=== PATIENT | female | born 1960 | race Caucasian/White ===

== ENCOUNTER → 2016-10-16 | Outpatient (CLI) | payer BC ==
[2016-10-16 09:57] LABS: Basophils # (A) 0.1 k/uL (0-0.2); Basophils % (A) 1 %; CH 31.7; CHCM 34.5; Eosinophils # (A) 0.2 k/uL (0-0.7); Eosinophils % (A) 3 %; HCT 44.1 % (34.0-46.0); HDW 2.54; HGB 14.7 gm/dL (11.4-16.0); Luc # (Auto) 0.13; Luc % (Auto) 2; Lymphocytes # (A) 2.1 k/uL (1.0-4.8); Lymphocytes % (A) 33 %; MCH 30.7 pg (25.0-35.0); MCHC 33.3 g/dL (31.0-37.0); MCV 92.4 fL (80.0-100.0); Mean Platelet Volume 7.4; Monocytes # (A) 0.4 k/uL (0-1.0); Monocytes % (A) 6 %; Neutrophils # (A) 3.5 k/uL (1.3-7.7); Neutrophils % (A) 55 %; RBC 4.77 m/uL (3.80-5.40); RDW 12.7 % (11.5-15.5); WBC 6.3 k/uL (3.8-10.6); WBC (Perox) 6.45
[2016-10-16 10:19] LABS: ALT 22 U/L (9-52); AST 20 U/L (14-36); Alkaline Phosphatase 70 U/L (38-126); Anion Gap 13 mmol/L; Blood Urea Nitrogen 18 mg/dL (7-17); Calcium 9.6 mg/dL (8.4-10.2); Carbon Dioxide 28 mmol/L (22-30); Chloride 102 mmol/L (98-107); Cholesterol 224 mg/dL (<200); Glucose 96 mg/dL (74-99); HDL Cholesterol 55 mg/dL (40-60); Non-African American GFR(MDRD) >60 (>60 ml/min/1.73 sqM); Potassium 3.7 mmol/L (3.5-5.1); Sodium 143 mmol/L (137-145); Total Bilirubin 0.8 mg/dL (0.2-1.3); Total Protein 7.6 g/dL (6.3-8.2); Triglycerides 113 mg/dL (<150)
== END | disposition home or self-care (01) ==
LOC: LABWHC1 09:32
PROVIDERS: ATTEND Nurse Practitioner Family
DX: Z00.00 Encounter for general adult medical examination without abnormal findings (principal); I10 Essential (primary) hypertension; E55.9 Vitamin D deficiency, unspecified; Z13.29 Encounter for screening for other suspected endocrine disorder
CPT/HCPCS: 36415; 80053; 80061; 82306; 84439; 84443; 85025

== ENCOUNTER → 2016-11-26 | Outpatient (CLI) | payer BC ==
--- NOTE | 2016-11-29 12:28 | MM ---
Reason for exam: screening (asymptomatic). Last mammogram was performed 1 year and 11 months ago. History: Patient is postmenopausal. Taking estrogen for 1 year. Physical Findings: A clinical breast exam by your physician is recommended on an annual basis and results should be correlated with mammographic findings. MG Screening Mammo w CAD Bilateral CC and MLO view(s) were taken. Prior study comparison: January 02, 2015, bilateral MG screening mammo w CAD. July 26, 2013, bilateral digital screening mammo w/CAD. There are scattered fibroglandular densities. No significant changes when compared with prior studies. ASSESSMENT: Negative, BI-RAD 1 RECOMMENDATION: Routine screening mammogram of both breasts in 1 year.
== END | disposition home or self-care (01) ==
LOC: RADMAMWWP 13:29
PROVIDERS: ATTEND Family Medicine
DX: Z12.31 Encounter for screening mammogram for malignant neoplasm of breast (principal)

== ENCOUNTER 2017-03-07 16:42 | Emergency (ER) | payer BC ==
[2017-03-07 16:55] VITALS: BP 164/83; PULSE 65; RESP 18; TEMP 98.1
[2017-03-07] MEDS ORDERED: RX INFO: IV CONTRAST WAS GIVEN 1 EACH MISC MISCELLANE PRN (17:15)
[2017-03-07] MEDS ORDERED: SODIUM CHLORIDE 0.9% 500 ML IV STA (17:20)
[2017-03-07] MEDS ORDERED: diphenhydrAMINE 50 MG/ML 1 ML VIAL IVP STA (17:20)
--- NOTE | 2017-03-07 17:24 | ED ---
Back Pain HPI - General Chief Complaint: Back Pain/Injury Stated Complaint: Fell off horse Time Seen by Provider: 03/07/17 16:57 Source: patient, RN notes reviewed, old records reviewed Limitations: no limitations - History of Present Illness Initial Comments: This is a 48-year-old female presenting to the emergency Department chief complaint of back pain. Patient reports that she was bucked off of her horse at 2 PM. Patient states that initially she lost control of her bladder function. Patient reports that since then she's had a some minor neck pain as well as, kidney pain, and very lower back pain. Patient reports that she landed on her back and buttocks. Patient states that the pain is worse with certain movements and sitting. Patient denies any headache or loss of consciousness with the injury. Patient poor she was wearing a helmet. Patient states that she has no fever, chills, chest pain, shortness of breath, nausea or vomiting. - Related Data Home Medications Medication Instructions Recorded Confirmed Atenolol/Chlorthalidone 50 mg PO DAILY 03/07/17 03/07/17 [Atenolol-Chlorthalidone 50-25] Previous Rx's Medication Instructions Recorded Cyclobenzaprine [Flexeril] 10 mg PO TID #20 tab 03/07/17 HYDROcodone/APAP 10-325MG [Outing 1 tab PO Q6H PRN #15 tab 03/07/17 10-325] Allergies Allergy/AdvReac Type Severity Reaction Status Date / Time abarelix Allergy Unknown Verified 03/07/17 16:56 Review of Systems ROS Statement: Those systems with pertinent positive or pertinent negative responses have been documented in the HPI. ROS Other: All systems not noted in ROS Statement are negative. Past Medical History Past Medical History: Hypertension History of Any Multi-Drug Resistant Organisms: None Reported Past Surgical History: Bariatric Surgery, Hysterectomy, Joint Replacement Additional Past Surgical History / Comment(s): abdominoplasty Past Psychological History: No Psychological Hx Reported Smoking Status: Never smoker Past Alcohol Use History: None Reported Past Drug Use History: None Reported General Exam Limitations: no limitations General appearance: alert, in no apparent distress Head exam: Present: atraumatic, normocephalic, normal inspection Eye exam: Present: normal appearance, PERRL, EOMI. Absent: scleral icterus, conjunctival injection, periorbital swelling ENT exam: Present: normal exam, mucous membranes moist Neck exam: Present: normal inspection, full ROM, other (Patient reports minor tenderness over the left side of the neck.). Absent: tenderness, meningismus, lymphadenopathy Respiratory exam: Present: normal lung sounds bilaterally. Absent: respiratory distress, wheezes, rales, rhonchi, stridor Cardiovascular Exam: Present: regular rate, normal rhythm, normal heart sounds. Absent: systolic murmur, diastolic murmur, rubs, gallop, clicks GI/Abdominal exam: Present: soft, normal bowel sounds. Absent: distended, tenderness, guarding, rebound, rigid Extremities exam: Present: normal inspection, full ROM, normal capillary refill. Absent: tenderness, pedal edema, joint swelling, calf tenderness Back exam: Present: normal inspection, tenderness, vertebral tenderness (lumbar spinal tenderness) Neurological exam: Present: alert, oriented X3, CN II-XII intact Psychiatric exam: Present: normal affect, normal mood Skin exam: Present: warm, dry, intact, normal color. Absent: rash Course Vital Signs 03/07/17 16:50 Temperature 98.1 F Pulse Rate 65 Respiratory 18 Rate Blood Pressure 164/83 O2 Sat by Pulse 96 Oximetry - Reevaluation(s) Reevaluation #1: 03/07/17 17:24 Patient states history was related to Dr. Cox. He recommends a CT abdomen and pelvis at this time. Medical Decision Making - Medical Decision Making This is a 48-year-old female presenting to the emergency Department chief complaint of back pain. Patient reports that she was bucked off of her horse at 2 PM. Patient states that initially she lost control of her bladder function. Patient reports that since then she's had a some minor neck pain as well as, kidney pain, and very lower back pain. Patient reports that she landed on her back and buttocks. Patient states that the pain is worse with certain movements and sitting. Patient denies any headache or loss of consciousness with the injury. Patient poor she was wearing a helmet. Discussed case with Dr. Cox, patient was placed in C collar and CT brain, cspine, abdomen and pelvis and coccyx was preformed. PAitent CT shows evidence of t12 compression fracture, no other abnormalities. C collar removed. Discussed findings with Dr. Cox, he also examined patient. She does have full sensation in bilateral lower extremities, no saddle anesthesias. Patient will be referred to Dr. Cooper, and orthopedic. Discussed taking pain medication and limit activity. Patient agrees to treatment plan and will comply. - Lab Data Result diagrams: 03/07/17 17:39 03/07/17 17:39 Lab Results 03/07/17 03/07/17 03/07/17 Range/Units 17:39 17:39 17:39 WBC 11.7 H (3.8-10.6) k/uL RBC 4.71 (3.80-5.40) m/uL Hgb 14.6 (11.4-16.0) gm/dL Hct 42.6 (34.0-46.0) % MCV 90.3 (80.0-100.0) fL MCH 31.1 (25.0-35.0) pg MCHC 34.4 (31.0-37.0) g/dL RDW 12.7 (11.5-15.5) % Plt Count 246 (150-450) k/uL Neutrophils % 80 % Lymphocytes % 14 % Monocytes % 4 % Eosinophils % 0 % Basophils % 0 % Neutrophils # 9.3 H (1.3-7.7) k/uL Lymphocytes # 1.7 (1.0-4.8) k/uL Monocytes # 0.5 (0-1.0) k/uL Eosinophils # 0.1 (0-0.7) k/uL Basophils # 0.0 (0-0.2) k/uL PT (9.0-12.0) sec INR (<1.1) APTT (22.0-30.0) sec Sodium (137-145) mmol/L Potassium (3.5-5.1) mmol/L Chloride (98-107) mmol/L Carbon Dioxide (22-30) mmol/L Anion Gap mmol/L BUN (7-17) mg/dL Creatinine (0.52-1.04) mg/dL Est GFR (MDRD) Af Amer (>60 ml/min/1.73 sqM) Est GFR (MDRD) Non-Af (>60 ml/min/1.73 sqM) Glucose (74-99) mg/dL Calcium (8.4-10.2) mg/dL Total Bilirubin (0.2-1.3) mg/dL AST (14-36) U/L ALT (9-52) U/L Alkaline Phosphatase (38-126) U/L Total Creatine Kinase 169 H (30-135) U/L CK-MB (CK-2) 3.5 H* (0.0-2.4) ng/mL CK-MB (CK-2) Rel Index 2.1 Troponin I <0.012 (0.000-0.034) ng/mL Total Protein (6.3-8.2) g/dL Albumin (3.5-5.0) g/dL Blood Type A Positive Blood Type Recheck A Pos Antibody Screen NEGATIVE Spec Expiration Date 03/10/2017 - 233803/07/17 03/07/17 Range/Units 17:39 17:39 WBC (3.8-10.6) k/uL RBC (3.80-5.40) m/uL Hgb (11.4-16.0) gm/dL Hct (34.0-46.0) % MCV (80.0-100.0) fL MCH (25.0-35.0) pg MCHC (31.0-37.0) g/dL RDW (11.5-15.5) % Plt Count (150-450) k/uL Neutrophils % % Lymphocytes % % Monocytes % % Eosinophils % % Basophils % % Neutrophils # (1.3-7.7) k/uL Lymphocytes # (1.0-4.8) k/uL Monocytes # (0-1.0) k/uL Eosinophils # (0-0.7) k/uL Basophils # (0-0.2) k/uL PT 10.8 (9.0-12.0) sec INR 1.1 (<1.1) APTT 25.1 (22.0-30.0) sec Sodium 141 (137-145) mmol/L Potassium 3.5 (3.5-5.1) mmol/L Chloride 102 (98-107) mmol/L Carbon Dioxide 26 (22-30) mmol/L Anion Gap 13 mmol/L BUN 19 H (7-17) mg/dL Creatinine 0.81 (0.52-1.04) mg/dL Est GFR (MDRD) Af Amer >60 (>60 ml/min/1.73 sqM) Est GFR (MDRD) Non-Af >60 (>60 ml/min/1.73 sqM) Glucose 85 (74-99) mg/dL Calcium 9.8 (8.4-10.2) mg/dL Total Bilirubin 0.6 (0.2-1.3) mg/dL AST 29 (14-36) U/L ALT 22 (9-52) U/L Alkaline Phosphatase 79 (38-126) U/L Total Creatine Kinase (30-135) U/L CK-MB (CK-2) (0.0-2.4) ng/mL CK-MB (CK-2) Rel Index Troponin I (0.000-0.034) ng/mL Total Protein 7.6 (6.3-8.2) g/dL Albumin 4.3 (3.5-5.0) g/dL Blood Type Blood Type Recheck Antibody Screen Spec Expiration Date - Radiology Data Radiology results: report reviewed Spondylosis in the lower lumbar spine. Acute compression fracture of the T12 vertebral body. No sign of traumatic injury within the above abdomen or pelvis. CT brain and cspine negative, besids spondylitic changes in cervical spine. Disposition Clinical Impression: T12 compression fracture, Fall from horse Disposition: HOME SELF-CARE Condition: Good Instructions: Acute Low Back Pain (ED) Additional Instructions: Patient advised to follow-up with orthopedic surgeon. Return the emergency department if any alarming signs or symptoms occur. Take pain medication as prescribed. Prescriptions: Cyclobenzaprine [Flexeril] 10 mg PO TID #20 tab HYDROcodone/APAP 10-325MG [Outing 10-325] 1 tab PO Q6H PRN #15 tab PRN Reason: Pain Referrals: Angy Berger MD [Primary Care Provider] - 1-2 days Fawad Cooper DO [Doctor of Osteopathic Medicine] - 1-2 days Time of Disposition: 19:23
[2017-03-07 17:54] LABS: Basophils % (A) 0 %; CH 32.3; CHCM 35.9; Eosinophils # (A) 0.1 k/uL (0-0.7); Eosinophils % (A) 0 %; HCT 42.6 % (34.0-46.0); HDW 2.58; HGB 14.6 gm/dL (11.4-16.0); Luc # (Auto) 0.12; Luc % (Auto) 1; Lymphocytes # (A) 1.7 k/uL (1.0-4.8); Lymphocytes % (A) 14 %; MCH 31.1 pg (25.0-35.0); MCHC 34.4 g/dL (31.0-37.0); MCV 90.3 fL (80.0-100.0); Mean Platelet Volume 6.8; Monocytes # (A) 0.5 k/uL (0-1.0); Monocytes % (A) 4 %; Neutrophils # (A) 9.3 k/uL (1.3-7.7); Neutrophils % (A) 80 %; RBC 4.71 m/uL (3.80-5.40); RDW 12.7 % (11.5-15.5); WBC 11.7 k/uL (3.8-10.6); WBC (Perox) 11.97
[2017-03-07 17:58] LABS: INR 1.1 (<1.1); Partial Thromboplastin Time 25.1 sec (22.0-30.0); Prothrombin Time 10.8 sec (9.0-12.0)
[2017-03-07 18:06] LABS: ALT 22 U/L (9-52); AST 29 U/L (14-36); Alkaline Phosphatase 79 U/L (38-126); Anion Gap 13 mmol/L; Blood Urea Nitrogen 19 mg/dL (7-17); Calcium 9.8 mg/dL (8.4-10.2); Carbon Dioxide 26 mmol/L (22-30); Chloride 102 mmol/L (98-107); Glucose 85 mg/dL (74-99); Non-African American GFR(MDRD) >60 (>60 ml/min/1.73 sqM); Potassium 3.5 mmol/L (3.5-5.1); Sodium 141 mmol/L (137-145); Total Bilirubin 0.6 mg/dL (0.2-1.3); Total Protein 7.6 g/dL (6.3-8.2)
[2017-03-07 18:21] LABS: Creatine Kinase 169 U/L (30-135)
[2017-03-07 18:33] LABS: Creatine Kinase MB 3.5 ng/mL (0.0-2.4); Troponin I <0.012 ng/mL (0.000-0.034)
--- NOTE | 2017-03-07 18:52 | CT ---
EXAMINATION TYPE: CT brain alexine wo con DATE OF EXAM: 03/07/2017 COMPARISON: NONE HISTORY: Fell off horse. CT DLP: 1459.1 mGycm Automated exposure control for dose reduction was used. TECHNIQUE: CT scan of the head and cervical spine are performed without contrast. FINDINGS: Ventricles are fairly normal size. There is no mass effect nor midline shift. There is no sign of intracranial hemorrhage. The calvarium is intact. The cervical vertebra have normal alignment. There is mild spurring at C5-6 disc. Facet joints are in tact. Skull base is intact. There is no sign of a fracture. There is multilevel hypertrophic facet ar thropathy in the mid and lower cervical spine. IMPRESSION: Negative CT scan of the brain. No evidence of traumatic injury. Spondylotic changes in the cervical spine. No fracture.
--- NOTE | 2017-03-07 18:57 | CT ---
EXAMINATION TYPE: CT lumbar spine w con DATE OF EXAM: 03/07/2017 COMPARISON: NONE HISTORY: Fell off horse. Lower back pain. CT DLP: 1459.1 mGycm Automated exposure control for dose reduction was used. CONTRAST: CT scan of the lumbar is performed with IV Contrast, patient injected with 100 mL of Omnipaque 300. Enhanced CT of the lumbar spine was performed. Bone and soft tissue window settings are submitted as well as coronal and sagittal reconstructions. There is moderately severe narrowing of L4-5 disc space with spurring of the endplates. There is mild anterior subluxation of L4 in relation L5 of 6 mm. There is hypertrophic facet arthropathy at L4-5 a nd L5-S1. There is moderate narrowing at L5-S1 disc space. There is a relative spinal stenosis at L4- 5. There is slight depression of the superior endplate of T12 vertebra with 5% loss of height. This appe ars to be an acute fracture with step deformity of the cortex on the anterior aspect. The sacroiliac joints appear intact. IMPRESSION: There is moderate spondylosis in the lower lumbar spine with a degenerative first degree L4-5 spondyl olisthesis. There is L4-5 spinal stenosis. There is evidence of an acute mild 5-10% compression fracture of T12 vertebra.
--- NOTE | 2017-03-07 19:02 | CT ---
EXAMINATION TYPE: CT abdomen pelvis w con DATE OF EXAM: 03/07/2017 COMPARISON: NONE HISTORY: Fell of horse today. Lower back pain. CT DLP: 1459.1 mGycm Automated exposure control for dose reduction was used. TECHNIQUE: Helical acquisition of images was performed from the lung bases through the pelvis. CONTRAST: Performed without Oral Contrast and with IV Contrast, patient injected with 100 mL of Omnipaque 300. FINDINGS: Lung bases are clear of consolidation. There is no pleural effusion. There is bariatric surgery with a sleeve at the gastric fundus. Liver spleen pancreas gallbladder appear normal. Bile ducts are not d ilated. There is no adrenal mass. Kidneys show satisfactory contrast opacification. There is no hydro nephrosis. There is no retroperitoneal adenopathy. There is normal contrast opacification of the abdo ynes aorta. There is no evidence of contrast extravasation. Bladder distends smoothly. There is no p elvic mass. There is no ascites. There is no sign of appendicitis. Appendix appears normal. There are spondylotic changes in the lower lumbar spine described in the CT lumbar spine report. There is 5-10% wedging of T12 vertebral body related to acute fracture. IMPRESSION: SPONDYLOSIS IN THE LOWER LUMBAR SPINE. ACUTE MILD COMPRESSION FRACTURE OF T12 VERTEBRAL BODY. NO SIGN OF TRAUMATIC INJURY WITHIN THE ABDOMEN AND PELVIS.
--- NOTE | 2017-03-07 19:04 | XR ---
EXAMINATION TYPE: XR chest 1V DATE OF EXAM: 03/07/2017 COMPARISON: NONE HISTORY: Fell from a horse TECHNIQUE: Single frontal view of the chest is obtained. FINDINGS: Heart and mediastinum are normal. Lungs are clear. There is no sign of pleural effusion or pneumothorax. IMPRESSION: Normal chest
[2017-03-07] MEDS ORDERED: ACET/COD 300 MG/30 MG STARTER PACK 6 TAB BTL PO STA (19:24)
[2017-03-07] MEDS ORDERED: KETOROLAC 30 MG/ML 1 ML VIAL IVP STA (19:24)
== END 2017-03-07 19:42 | disposition home or self-care (01) ==
LOC: EC 16:42
DX: S22.089A Unspecified fracture of T11-T12 vertebra, initial encounter for closed fracture (principal); M47.812 Spondylosis without myelopathy or radiculopathy, cervical region; M47.816 Spondylosis without myelopathy or radiculopathy, lumbar region; N23 Unspecified renal colic; I10 Essential (primary) hypertension; Z79.899 Other long term (current) drug therapy; Z88.8 Allergy status to other drugs, medicaments and biological substances; W17.89XA Other fall from one level to another, initial encounter; Y93.89 Activity, other specified
CPT/HCPCS: 36415; 86900; 86901; 80053; 82550; 82553; 84484; 85025; 85610; 85730; 86850; 71010; 72125; 72132; 70450; 74177; 99284; 96374; 96375; 96361 ×2; J1200; J1885; Q9967

== ENCOUNTER → 2017-03-14 | Outpatient (CLI) | payer BC ==
--- NOTE | 2017-03-14 15:33 | NM ---
EXAMINATION TYPE: NM bone SPECT, NM bone scan whole body DATE OF EXAM: 03/14/2017 COMPARISON: CT abdomen pelvis, CT brain and cervical and lumbar spine 03/07/2017 HISTORY: Low back pain TECHNIQUE: After the intravenous administration of 26.3 mCi Tc 99m MDP. Images acquired 3 hours pos t injection. SPECT views of the lumbar and pelvis are submitted. There is abnormal uptake within the distal sacrum compatible with nondisplaced fracture, correlating findings are seen on CT scan. Focus of uptake is also present at the level of the left sacral ala com patible with nondisplaced fracture. Superior endplate fracture present T12 shows a bandlike correspon ding area of increased uptake. Uptake within the feet and ankles is likely degenerative. Postop changes are noted within the knees w ith corresponding distribution of uptake present. The left greater trochanter shows mild uptake may b e due to inflammatory change. There is uptake within the shoulders, hands, elbows compatible with deg enerative change. Soft tissue uptake is normal. IMPRESSION: Fractures of the sacrum are nondisplaced. Superior endplate fracture T12.
== END | disposition home or self-care (01) ==
LOC: RADNMMAIN 10:35
PROVIDERS: ATTEND Physical Medicine & Rehabilitation
DX: S32.10XA Unspecified fracture of sacrum, initial encounter for closed fracture (principal); S22.089A Unspecified fracture of T11-T12 vertebra, initial encounter for closed fracture
CPT/HCPCS: 78306; 78320; A9503

== ENCOUNTER → 2018-02-27 | Outpatient (CLI) | payer BC ==
--- NOTE | 2018-03-01 07:31 | MM ---
Reason for exam: screening (asymptomatic). Last mammogram was performed 1 year and 3 months ago. History: Patient is postmenopausal. Took estrogen for 1 year. Physical Findings: A clinical breast exam by your physician is recommended on an annual basis and results should be correlated with mammographic findings. MG Screening Mammo w CAD Bilateral CC and MLO view(s) were taken. Prior study comparison: November 26, 2016, bilateral MG screening mammo w CAD. January 02, 2015, bilateral MG screening mammo w CAD. The breast tissue is heterogeneously dense. This may lower the sensitivity of mammography. There is a stable upper outer quadrant middle depth left breast mass back to 2014. No suspicious abnormality. No significant changes when compared with prior studies. ASSESSMENT: Benign, BI-RAD 2 RECOMMENDATION: Routine screening mammogram of both breasts in 1 year.
== END | disposition home or self-care (01) ==
LOC: RADMAMWWP 15:46
PROVIDERS: ATTEND Family Medicine
DX: Z12.31 Encounter for screening mammogram for malignant neoplasm of breast (principal)
CPT/HCPCS: 77067

== ENCOUNTER → 2019-06-27 | Outpatient (CLI) | payer OTHER ==
[~2019-06-27] MED LIST: REGADENOSON 0.4 MG/5 ML SYRINGE IV ONE
[2019-06-27 09:16] LABS: Basophils # (A) 0.1 k/uL (0-0.2); Basophils % (A) 1 %; Eosinophils # (A) 0.1 k/uL (0-0.7); Eosinophils % (A) 2 %; HCT 44.1 % (34.0-46.0); HGB 14.3 gm/dL (11.4-16.0); Lymphocytes # (A) 1.7 k/uL (1.0-4.8); Lymphocytes % (A) 27 %; MCH 31.2 pg (25.0-35.0); MCHC 32.5 g/dL (31.0-37.0); Mean Platelet Volume 7.2; Monocytes # (A) 0.4 k/uL (0-1.0); Monocytes % (A) 7 %; Neutrophils % (A) 62 %; Platelet Count 247 k/uL (150-450); RBC 4.59 m/uL (3.80-5.40); RDW 12.7 % (11.5-15.5); WBC 6.4 k/uL (3.8-10.6)
[2019-06-27 09:28] LABS: Albumin 4.2 g/dL (3.5-5.0); Appearance,Urine Clear (Clear); Bilirubin,Urine Negative (Negative); Blood,Urine Negative (Negative); Calcium 9.6 mg/dL (8.4-10.2); Color,Urine Yellow; Glucose,Urine (UA) Negative (Negative); Ketones,Urine Negative (Negative); Leukocyte Esterase,Urine Negative (Negative); Nitrite,Urine Negative (Negative); PH, Urine 7.5 (5.0-8.0); Potassium 3.8 mmol/L (3.5-5.1); Protein,Urine Negative (Negative); Specific Gravity,Urine 1.017 (1.001-1.035); Total Bilirubin 0.5 mg/dL (0.2-1.3); Total Protein 7.5 g/dL (6.3-8.2); Urobilinogen,Urine <2.0 mg/dL (<2.0)
--- NOTE | 2019-06-27 11:47 | NM ---
EXAMINATION TYPE: NM stress lexiscan cardiolite DATE OF EXAM: 06/27/2019 COMPARISON: NONE HISTORY: Chest pain TECHNIQUE: After the intravenous administration of 10.46 mCi Tc 99m Sestamibi - Cardiolite resting S PECT images acquired 50 minutes post injection. The patient received 0.4mg Lexiscan, 25.9 mCi Tc 99m Sestamibi - Stress images obtained [address] injection FINDINGS: Review of stress and rest SPECT images demonstrates no distinct perfusion abnormality. Gated analysi s shows normal wall motion with an estimated left ventricular ejection fraction of 61 %. IMPRESSION: No scintigraphic evidence for reversible ischemia.
--- NOTE | 2019-06-27 13:46 | EST ---
EXERCISE STRESS DATE OF SERVICE: 06/27/2019 AGE: 58 SEX: Female HT: 66" WT: 240 pounds PROTOCOL: Lexiscan Cardiolite STAGE: DURATION OF EXERCISE: HEART RATE REST: 53 BLOOD PRESSURE REST: 131/77 MAXIMUM HEART RATE ACHIEVED: 70 MAXIMUM BLOOD PRESSURE: 121/87 85% MPHR: 136 100% MPHR: 160 METS: INDICATIONS: Abnormal EKG, Pre-Op. CLINICAL INFORMATION: Lexiscan nuclear study was performed. Resting heart rate is 53 beats per minute. Resting blood pressure is 131/77 mmHg was noted. Peak heart rate of 70 was noted. Peak blood pressure was 121/87 mmHg was noted. Resting EKG shows normal sinus rhythm with normal PA interval and QRS duration and normal ST-T waves. No ST-segment depression suggestive of ischemia is noted. FINAL IMPRESSION: There is no evidence of any ST-segment depression to suggest ischemia. The results of the nuclear study will follow. MICHELLE / ALESSIAN: [id number] /
== END | disposition home or self-care (01) ==
LOC: RADNMMAIN 07:22
PROVIDERS: ATTEND Family Medicine
DX: Z01.818 Encounter for other preprocedural examination (principal); Z01.812 Encounter for preprocedural laboratory examination; Z88.1 Allergy status to other antibiotic agents
CPT/HCPCS: 93017; 80053; 85025; 81003; 78452; A9500; J2785

== ENCOUNTER → 2019-06-27 | Outpatient (CLI) | payer OTHER ==
[2019-06-27 09:31] LABS: INR 0.9 (<1.2); Partial Thromboplastin Time 27.4 sec (22.0-30.0); Prothrombin Time 10.2 sec (9.0-12.0)
== END | disposition home or self-care (01) ==
LOC: LABPAT 08:32
PROVIDERS: ATTEND Orthopaedic Surgery
DX: Z01.818 Encounter for other preprocedural examination (principal)
CPT/HCPCS: 85610; 85730; 87070

== ENCOUNTER 2019-07-02 11:04 | Day surgery (SDC) | payer BC, OTHER ==
[~2019-07-02 11:04] MED LIST changes: +ACETAMINOPHEN TAB 500 MG TAB PO ONE; +LIDOCAINE 1% 20 ML VIAL (10MG/ML) FOR IV START INTRADERMA PRN; +MELOXICAM 7.5 MG TAB PO ONE; +METOCLOPRAMIDE 5 MG/ML 2 ML VIAL IVP PRN; +MIDAZOLAM 2 MG/2 ML VIAL IV PRN; +ONDANSETRON 4 MG/2 ML VIAL IVP ONE; -REGADENOSON 0.4 MG/5 ML SYRINGE IV ONE; +ROPIVACAINE 246.25 MG, EPINEPHrine 0.5 MG, KETOROLAC 30 MG, cloNIDine HCL/PF 80 MCG, WA... MISCELLANE ONE; +TRANEXAMIC ACID 1,000 MG in SODIUM CHLORIDE 0.9% 100 ML IVPB ONE; +fentaNYL (PF) 50 MCG/ML 2 ML AMP IVP PRN
[2019-07-02] MEDS ORDERED: MIDAZOLAM 2 MG/2 ML VIAL IVP ONE (11:15)
[2019-07-02] MEDS ORDERED: LIDOCAINE 1% 20 ML VIAL (10MG/ML) FOR IV START INTRADERMA ONE (11:30)
[2019-07-02] MEDS: LACTATED RINGERS 1,000 ML IV SCH (11:33)
[2019-07-02] MEDS ORDERED: ONDANSETRON 4 MG/2 ML VIAL IVP PRN (12:10)
[2019-07-02] MEDS ORDERED: HYDROmorphone 0.5 MG/0.5 ML SYRINGE IVP PRN ×2 (12:10)
[2019-07-02] MEDS ORDERED: HYDROcodone/APAP 5-325MG 1 EACH TAB PO PRN (12:10)
[2019-07-02] MEDS ORDERED: DIAZEPAM 5 MG TAB PO PRN (12:10)
[2019-07-02] MEDS ORDERED: HYDROmorphone 1 MG/ML 1 ML SYRINGE IVP PRN (12:10)
[2019-07-02] MEDS ORDERED: NALOXONE 0.4 MG/ML 1 ML VIAL IV PRN (12:10)
[2019-07-02] MEDS ORDERED: BISACODYL 10 MG SUPP RECTAL PRN (12:10)
[2019-07-02] MEDS ORDERED: NA PHOS,M-B/NA PHOS,DI-BA 133 ML ENEMA RECTAL PRN (12:10)
[2019-07-02] MEDS ORDERED: MAGNESIUM HYDROXIDE 2,400 MG/10 ML CUP PO PRN (12:10)
[2019-07-02] MEDS ORDERED: hydrOXYzine PAMOATE 25 MG CAP PO PRN (12:10)
[2019-07-02] MEDS ORDERED: ROPIVACAINE 0.2%-NS ON-Q PUMP 1,090 MG, EMPTY PAIN BALL 1 EACH MISCELLANE PRN (12:36)
[2019-07-02] MEDS ORDERED: MIDAZOLAM 2 MG/2 ML VIAL ONE (12:43)
[2019-07-02] MEDS ORDERED: TRANEXAMIC ACID 1,000 MG/10 ML VIAL ONE (12:43)
[2019-07-02] MEDS ORDERED: SODIUM CHLORIDE 0.9% 100 ML BAG ONE (12:43)
[2019-07-02] MEDS ORDERED: PROPOFOL 10 MG/ML 20 ML VIAL IV ONE (12:43)
[2019-07-02] MEDS ORDERED: ceFAZolin 3,000 MG in SODIUM CHLORIDE 0.9% IRRIGATIO 3,000 ML IRRIGATION ONE (13:18)
--- NOTE | 2019-07-02 15:36 | P.OP ---
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 Anesthesia: spinal Surgeon: James Sheets Sheet [employer] Applier #1: Tali Bell Pathology: none sent Condition: stable Disposition: PACU Indications for Procedure: This is a 58-year-old female that has had the right total knee arthroplasty performed proximally 12 years ago. She began having more pain and x-rays demonstrated a fracture of the tibial component. After discussing the surgical and nonsurgical treatment options with her at length, I recommended a revision of right total knee arthroplasty and informed consent was obtained. Operative Findings: The operative findings are consistent with a fracture of the right tibial component and gross tibial loosening. The femoral component and patellar components were well fixed. Description of Procedure: Patient was seen in the preoperative area consent was reviewed and operative site was marked with a skin marker. An adductor canal pain catheter was placed by anesthesia in the preoperative area. Patient was then brought to the operating room and given preoperative antibiotics intravenously. A spinal anesthetic was administered by the anesthesia department. A tourniquet was placed on the upper thigh and the lower extremity was prepped and draped in usual sterile fashion. A gram of transexamic acid was given. A universal timeout was then performed which confirmed the patient's name, surgical site, ALLERGIES, and consent. The lower extremity was then exsanguinated and tourniquet was inflated to 250 mmHg. A standard and anterior midline approach to the knee was performed. The skin and subcutaneous tissue was dissected down to the patellar tendon, with the prior scar being excised. A medial parapatellar arthrotomy was then performed. There was difficulty in everting the patella, so a quadriceps snip was performed in order to enhance exposure without risking rupturing the patellar tendon. The components were then inspected and the femur and patella were grossly found to be well fixed. The tibial component was found to be fractured and loose. The tibial poly-was then removed without incident. Attention was directed to the femur. Using a small oscillating saw, the implant cement interface was disrupted, and the femoral component was easily removed with an osteotome and a mallet. There was minimal bone loss encountered. Attention was then directed to the tibia. Again using a small oscillating saw, the implant bone interface was disrupted. The tibial component was an easily removed with an osteotome and a mallet. The tibial component came out in 2 completely separate pieces due to the fracture. There was very little bone loss from the tibia. Next, the saw was then used to remove the patellar bone and as well. Attention was redirected to the femur. Sequential reaming of the femoral canal was performed until good cortical fit at 12 mm. The distal cutting guide was then placed over the reamer the distal femur cut was performed. Next the 4-in-1 cutting block was placed over the reamer and the appropriate cuts were performed. The cutting block and reamer were then removed and the femoral trial was placed. The bone was then removed for the box. Femoral trial was then removed. Attention was then redirected to the tibia. Sequential reaming of the tibial canal was performed until good cortical fit at 11 mm. The intramedullary proximal tibial cutting guide was then placed over the reamer, the proximal tibia was cut. The tibia was sized and it was determined that an offset stem should be used. Proximal tibia was then prepared for the offset stem next the patella was then prepared as well. Trials were then placed with a 9 mm constrained liner. The knee was able to fully extend and flex to 115 and was stable throughout all range of motion. Trials were then removed. The cut surfaces of bone were then irrigated with pulsatile lavage. The posterior structures were injected with the ropivacaine solution. The knee was also irrigated with Irrisept solution. The components were then opened, the cement was mixed, and the components were then cemented in place. The cement was allowed to harden with the knee in full extension. While the cement was hardening, the remaining soft tissues were then injected with a ropivacaine solution, which consisted of 246.25 mg of ropivacaine, 0.5 mg of epinephrine, 30 mg of Toradol, 80 g of clonidine, and 48.45 mL of sterile water, for a total of 100 mL of fluid injected. After the cemented hardened. The tourniquet was released, and hemostasis was obtained. A second gram of transexamic acid was given. The knee was again irrigated. The knee was again taken through range of motion and found to be stable throughout all range of motion of 0-130, and the patella tracked normally. The fascia was then closed with #2 strata fix suture. The subcutaneous tissue was closed with 3-0 Vicryl and 3-0 strata fix. Dermabond glue was used for the skin and placed with the knee in flexion. The patient was placed in a sterile silver dressing. Patient was then transferred to recovery room in stable condition. The assistant store director TATI Santana was required due the complexity surgery and the need for a skilled certified ophthalmic surgical assistant. She assisted in positioning, draping, retraction, and closure of the wound.
--- NOTE | 2019-07-02 15:48 | XR ---
EXAMINATION TYPE: XR knee limited RT DATE OF EXAM: 07/02/2019 CLINICAL HISTORY: Right knee pain and arthritis status post total knee replacement. TECHNIQUE: Portable AP and crosstable lateral views of the right knee are obtained immediately posto peratively. COMPARISON: None FINDINGS: Metallic hardware from total right knee arthroplasty is seen and appears satisfactory in a lignment and position. There is evidence of recent surgery with diffuse subcutaneous gas and soft ti ssue swelling noted. IMPRESSION: METALLIC HARDWARE FROM TOTAL RIGHT KNEE ARTHROPLASTY IS SATISFACTORY IN ALIGNMENT.
[2019-07-02] MEDS: HYDROmorphone 0.5 MG/0.5 ML SYRINGE IVP PRN ×3 (15:55→17:24)
[2019-07-02 19:07] VITALS: BMI 39.3
[2019-07-02] MEDS: SODIUM CHLORIDE 0.9% 1,000 ML IV SCH (19:08)
[2019-07-02] MEDS: KETOROLAC 30 MG/ML 1 ML VIAL IVP SCH (19:10)
--- NOTE | 2019-07-02 19:32 | P.ANPRN ---
Procedure Note - Anesthesia - Nerve Block Performed Right Transversus Abdominis Infusion Time Out Performed: Yes Date of Procedure: 07/02/19 Procedure Start Time: 12:10 Procedure Stop Time: 12:26 Location of Patient Procedure: PreOp Indication: Acute Post-Operative Pain, Requested by Surgeon Sedation Type: Sedate with meaningful contact maintained Preparation: Sterile Prep, Sterile Dressing Position: Supine Catheter: Indwelling Needle Types: Pajunk Needle Gauge: 21 Ultrasound used to visualize needle placement: Yes Ultrasound used to observe medication spread: Yes Blood Aspirated: No Pain Paresthesia on Injection Noted: No Resistance on Injection: Normal Image Stored and Saved: Yes Events: Uneventful and Well Tolerated (ropi .5% 20cc)
[2019-07-02] MEDS: ASPIRIN 325 MG TAB PO SCH (20:31)
[2019-07-02] MEDS ORDERED: SENNOSIDES-DOCUSATE SODIUM 1 EACH TAB PO SCH (21:00)
[2019-07-03] MEDS: HYDROcodone/APAP 5-325MG 1 EACH TAB PO PRN ×3 (00:32→13:30)
[2019-07-03] MEDS: LACTATED RINGERS 1,000 ML IV SCH (05:30)
[2019-07-03 06:40] LABS: Basophils % (A) 0 %; Eosinophils # (A) 0.1 k/uL (0-0.7); Eosinophils % (A) 1 %; HCT 37.1 % (34.0-46.0); HGB 12.1 gm/dL (11.4-16.0); Lymphocytes # (A) 1.7 k/uL (1.0-4.8); Lymphocytes % (A) 17 %; MCH 30.6 pg (25.0-35.0); MCHC 32.7 g/dL (31.0-37.0); MCV 93.6 fL (80.0-100.0); Mean Platelet Volume 6.9; Monocytes # (A) 0.6 k/uL (0-1.0); Monocytes % (A) 6 %; Neutrophils # (A) 7.2 k/uL (1.3-7.7); Neutrophils % (A) 74 %; Platelet Count 186 k/uL (150-450); RBC 3.96 m/uL (3.80-5.40); WBC 9.8 k/uL (3.8-10.6)
[2019-07-03] MEDS: SODIUM CHLORIDE 0.9% 1,000 ML IV SCH (07:07)
--- NOTE | 2019-07-03 07:40 | P.PN ---
Progress Note - Text 07/03 700am 58-year-old female status post total knee replacement by Dr. James gutierrez. Patient has an On-Q pump for postop pain control with the solution running at 8 mL an hour with a VAS of 5. Plan to continue On-Q pump infusion
[2019-07-03] MEDS ORDERED: MELOXICAM 7.5 MG TAB PO SCH (09:00)
[2019-07-03] MEDS: ASPIRIN 325 MG TAB PO SCH (09:14)
[2019-07-03 09:34] VITALS: BP 115/69; PULSE 66; RESP 16; TEMP 98.2
--- NOTE | 2019-07-03 09:47 | P.DS ---
Providers Expected date of discharge: 07/03/19 Attending physician: James Sheets Consults: 07/02/19 12:10 Consult Physician Routine Consulting Provider: Angelica Valente Consult Reason/Comments: medical management Do you want consulting provider notified?: Yes Primary care physician: Viky Rollins - Discharge Diagnosis(es) (1) Status post revision of total replacement of right knee Current Visit: Yes Status: Acute Hospital Course: This is a 58-year-old female who had a right total knee replacement approximately 12 years ago. The patient presented for evaluation and x-ray showed a fracture of the tibial component. After discussion and consideration patient elects to proceed with revision right total knee arthroplasty. The patient is seen preoperatively by Dr. Sheets and medically cleared for surgery by their primary care physician. Patient is admitted to [facility] on 07/02/2019 for revision right total knee arthroplasty. The procedures performed without complication or sequelae. The patient is doing well postoperatively. Labs and vital signs are stable on day of discharge. On day of discharge patient's knee incision is healing well. There is minimal erythema. There is no drainage noted at this time. There is minimal soft tissue swelling to the knee. Patient has full foot and ankle motion without difficulty or pain. Calf is soft and nontender to palpation. Neurovascular status to the right lower extremity is intact. Patient is discharged home in good condition. Opioid start talking form is reviewed and signed at patient bedside. Please see med rec for accurate list of home medications. Plan - Discharge Summary Discharge Rx Participant: Yes New Discharge Prescriptions: New Aspirin 325 mg PO BID #60 tab HYDROcodone/APAP 5-325MG [[place] 5-325] 1 - 2 tab PO Q6HR PRN #56 tab PRN Reason: Pain Sennosides [Senokot] 1 tab PO BID #60 tablet No Action Amoxicillin 2,000 mg PO ONCE PRN PRN Reason: DENTAL WORK Metoprolol/Hydrochlorothiazide [Lopressor Hct 50-25 Tablet] 1 tab PO DAILY Multivit-Min/FA/Lycopen/Lutein [Centrum Silver Tablet] 1 each PO DAILY Ibuprofen [Motrin Ib] 800 mg PO Q8H PRN PRN Reason: Pain Fish Oil (Unknown Dose) 1 tab PO DAILY Discharge Medication List Amoxicillin 2,000 mg PO ONCE PRN 06/25/19 [History] Fish Oil (Unknown Dose) 1 tab PO DAILY 06/25/19 [History] Ibuprofen [Motrin Ib] 800 mg PO Q8H PRN 06/25/19 [History] Metoprolol/Hydrochlorothiazide [Lopressor Hct 50-25 Tablet] 1 tab PO DAILY 06/25/19 [History] Multivit-Min/FA/Lycopen/Lutein [Centrum Silver Tablet] 1 each PO DAILY 06/25/19 [History] Aspirin 325 mg PO BID #60 tab 07/03/19 [Rx] HYDROcodone/APAP 5-325MG [[place] 5-325] 1 - 2 tab PO Q6HR PRN #56 tab 07/03/19 [Rx] Sennosides [Senokot] 1 tab PO BID #60 tablet 07/03/19 [Rx] Follow up Appointment(s)/Referral(s): James Sheets DO [Doctor of Osteopathic Medicine] - 2 Weeks Activity/Diet/Wound Care/Special Instructions: Weightbearing as tolerated with a walker. CPM 5-6h daily. Leave dressing intact. May be removed by home care nurse or by patient in 10 days. May shower with dressing on. Recommend use of compression stockings daily for at least 2 weeks during the day to help prevent swelling and blood clots. May remove at night before sleeping. Please follow up with [facility] and call with any questions or concerns, . Discharge Disposition: HOME WITH HOME HEALTH SERVICES
--- NOTE | 2019-07-05 14:33 | CDI ---
Outpatient Documentation Clarification Form Date: 07/05/19 CDS/Career Services Assistant Name: Joanna Conley Phone: If any questions, call [facility] at [phone] Patient Name: Vickie Miramontes Admit Date: 07/02/19 Discharge Date: 07/03/19 ATTENTION: The [facility] Coding Staff appreciate your assistance in clarifying documentation. Please respond to the clarification below the line at the bottom and electronically sign. The [facility] Coding staff will review the response and follow-up if needed. Please note: Queries are made part of the Legal Health Record. If you have any questions, please contact the [facility]. Dear Dr. Kennedy, Please provide clarification as to the location of the anesthesia for post- operative pain. management . The surgeon dictates on the operative report that an Adductor canal catheter was placed by anesthesia in the pre-op area. Then when the patient was moved to the OR, she was given a spinal for the surgery. Your documentation states that a transverse abdominis infusion was given for post-operative pain management. Please clarify if it was an adductor canal or the transverse abdominis infusion for the post-operative pain management. Thank you for your kind consideration, MTDD
--- NOTE | 2019-07-08 21:13 | P.CONS ---
History of Present Illness - Reason for Consult Consult date: 07/03/19 Medical management of hypertension - Chief Complaint Elective surgery - History of Present Illness Patient is a 58-year-old female with a known history of hypertension currently was admitted to the hospital for revision of right total knee arthroplasty. Patient had right total knee arthroplasty approximately 12 years ago. Patient has been having more pain and x-ray showed fracture of the tibial component. Patient tolerated the procedure very well. Currently patient is well controlled. Postoperatively blood pressure is low and medications have been held at this time. No headache or dizziness or lightheadedness. No chest pain or shortness of breath. No fever no chills. Patient is controlled with medications currently. Review of Systems Constitutional: Patient denies any fever or chills . No generalized weakness or weight loss. Abdomen: Patient denied nausea vomiting and diarrhea and abdominal pain. Cardiovascular: Patient denies any chest pain or short of breath no palpitations. Respiratory: patient denied any cough is from production. No shortness of breath Neurologic: Patient denied any numbness or tingling headache. Musculoskeletal: Patient denies any complaints of joint swelling or deformity. Skin: Negative Psychiatric: Negative Endocrine: No heat or cold intolerance. No recent weight gain. Genitourinary: No dysuria or hematuria. All other 14 point ROS negative except the above Past Medical History Past Medical History: Hypertension Additional Past Medical History / Comment(s): Varicose Veins. Has kae Total Knees, implant broken in Rt Knee. History of Any Multi-Drug Resistant Organisms: None Reported Past Surgical History: Bariatric Surgery, Hysterectomy, Joint Replacement Additional Past Surgical History / Comment(s): abdominoplasty Past Anesthesia/Blood Transfusion Reactions: No Reported Reaction, Motion Sickness Past Psychological History: No Psychological Hx Reported Smoking Status: Never smoker Past Alcohol Use History: None Reported Past Drug Use History: None Reported - Past Family History Father Family Medical History: Cancer Additional Family Medical History / Comment(s): Esophageal CA Mother Family Medical History: Deep Vein Thrombosis (DVT) Medications and Allergies Home Medications Medication Instructions Recorded Confirmed Type Fish Oil (Unknown Dose) 1 tab PO DAILY 06/25/19 07/02/19 History Ibuprofen [Motrin Ib] 800 mg PO Q8H PRN 06/25/19 07/02/19 History Metoprolol/Hydrochlorothiazide 1 tab PO DAILY 06/25/19 07/02/19 History [Lopressor Hct 50-25 Tablet] Multivit-Min/FA/Lycopen/Lutein 1 each PO DAILY 06/25/19 07/02/19 History [Centrum Silver Tablet] Aspirin 325 mg PO BID #60 tab 07/03/19 Rx HYDROcodone/APAP 5-325MG [[place] 1 - 2 tab PO Q6HR PRN #56 tab 07/03/19 Rx 5-325] Sennosides [Senokot] 1 tab PO BID #60 tablet 07/03/19 Rx Allergies Allergy/AdvReac Type Severity Reaction Status Date / Time Iodinated Contrast Media Allergy Rash/Hives Verified 07/02/19 11:20 moxifloxacin [From Avelox] Allergy Rash/Hives Verified 07/02/19 11:20 Physical Exam Vitals: Vital Signs Temp Pulse Pulse Resp BP Pulse Ox 07/03/19 07:00 98.2 F 66 16 115/69 94 L 07/03/19 02:05 97.8 F 56 L 18 92/53 95 07/02/19 19:50 97.5 F L 49 L 16 103/63 95 07/02/19 17:32 50 L 16 128/75 95 07/02/19 17:02 47 L 16 118/66 98 07/02/19 16:35 48 L 16 114/65 96 07/02/19 16:20 97.4 F L 53 L 16 132/65 99 07/02/19 16:05 53 L 16 126/65 93 L 07/02/19 15:50 52 L 16 139/64 99 07/02/19 15:35 50 L 16 132/62 100 07/02/19 15:18 97.4 F L 56 L 16 128/72 99 07/02/19 12:33 57 L 16 117/58 98 07/02/19 11:28 98.5 F 60 16 141/70 97 Intake and Output 07/02/19 07/03/19 07/03/19 22:59 06:59 14:59 Intake Total 860 Balance 860 Intake: IV 600 Intake, IV Titration 260 Amount Sodium Chloride 0.9% 1, 210 000 ml @ 70 mls/hr IV . [id number] [facility] Rx#:[id number] ceFAZolin 2 gm In Sodium 50 Chloride 0.9% 50 ml @ 100 mls/hr IVPB Q8H [facility] Rx#: [id number] Other: # Voids 1 Weight 108.862 kg PHYSICAL EXAMINATION: Patient is lying in the bed comfortably, no acute distress, awake alert and oriented.. HEENT: Normocephalic. Neck is supple. Pupils reactive. Nostrils clear. Oral cavity is moist. Ears reveal no drainage. Neck reveals no JVD, carotid bruits, or thyromegaly. CHEST EXAMINATION: Trachea is central. Symmetrical expansion. Lung lewis clear to auscultation and percussion. CARDIAC: Normal S1, S2 with no gallops. No murmurs ABDOMEN: Soft. Bowel sounds normal. No organomegaly. No abdominal bruits. Extremities: reveal no edema. No clubbing or cyanosis Neurologically awake, alert, oriented x3 with well-coordinated movements. No focal deficits noted Skin: No rash or skin lesions. Psychiatric: Coperative. Nonsuicidal Musculoskeletal: No joint swelling or deformity. Normal range of motion. Results CBC & Chem 7: 07/03/19 06:17 Assessment and Plan Assessment: Revision of right total knee arthroplasty History of right total knee arthroplasty, years ago Osteoarthritis Hypertension. patient is currently hypotensive. DVT prophylaxis Plan: Patient was given IV hydration. Avoid IV narcotic pain medications which can l ower blood pressure. Patient usually takes metoprolol/hydrochlorothiazide at home, which is on hold due to hypotension. Follow up closely. Encourage incentive spirometry and ambulation. We will follow with you and further recommendations based on the clinical course. Thank you for your consult. Time with Patient: Greater than 30
== END 2019-07-03 15:32 | disposition home health service (06) ==
LOC: OR 11:04 → 4SSUR 17:51 → OR 07-03 15:32
PROVIDERS: ATTEND Orthopaedic Surgery
DX: T84.012A Broken internal right knee prosthesis, initial encounter (principal); I10 Essential (primary) hypertension; E78.5 Hyperlipidemia, unspecified; Z98.84 Bariatric surgery status; Z90.710 Acquired absence of both cervix and uterus; Z96.652 Presence of left artificial knee joint; Z83.3 Family history of diabetes mellitus; Z82.49 Family history of ischemic heart disease and other diseases of the circulatory system; Z79.899 Other long term (current) drug therapy; Z88.1 Allergy status to other antibiotic agents; Z91.041 Radiographic dye allergy status
CPT/HCPCS: 27447; 97161; 85025; 73560; C1776; C1713; J2250; J0171; J0690 ×3; J2405; J1885; J2795 ×2; J2704; J0735; J1170

== ENCOUNTER → 2020-03-13 | Outpatient (CLI) | payer OTHER ==
--- NOTE | 2020-03-13 12:33 | US ---
EXAMINATION TYPE: US venous doppler duplex LE RT DATE OF EXAM: 03/13/2020 10:02 AM COMPARISON: NONE CLINICAL HISTORY: L03.115 CELLULITIS RT LOWER LIMB. Pt states pain and lump right medial leg SIDE PERFORMED: Right TECHNIQUE: The lower extremity deep venous system is examined utilizing real time linear array sonog aspen with graded compression, doppler sonography and color-flow sonography. VESSELS IMAGED: External Iliac Vein (EIV) Common Femoral Vein Deep Femoral Vein Greater Saphenous Vein * Femoral Vein Popliteal Vein Small Saphenous Vein * Proximal Calf Veins (* superficial vessels) Right Leg: Negative for DVT, right medial lower leg in area of pt's pain and palpable show superfici al thrombophlebitis within right GSV from below knee to mid calf IMPRESSION: 1. Right lower extremity ultrasound negative for deep venous thrombosis. 2. Superficial thrombophlebitis of the right greater saphenous vein in the into the catheter is evide nt.
== END | disposition home or self-care (01) ==
LOC: RADUSWWP 09:39
PROVIDERS: ATTEND Family Medicine
DX: I80.01 Phlebitis and thrombophlebitis of superficial vessels of right lower extremity (principal)

== ENCOUNTER → 2020-07-24 | Outpatient (CLI) | payer OTHER ==
[2020-07-24 14:02] LABS: Basophils # (A) 0.1 k/uL (0-0.2); Basophils % (A) 1 %; Eosinophils # (A) 0.1 k/uL (0-0.7); Eosinophils % (A) 2 %; HCT 46.3 % (34.0-46.0); Lymphocytes # (A) 2.5 k/uL (1.0-4.8); Lymphocytes % (A) 33 %; MCH 30.9 pg (25.0-35.0); MCHC 32.5 g/dL (31.0-37.0); MCV 95.3 fL (80.0-100.0); Mean Platelet Volume 7.5; Monocytes # (A) 0.4 k/uL (0-1.0); Monocytes % (A) 6 %; Neutrophils # (A) 4.4 k/uL (1.3-7.7); Neutrophils % (A) 58 %; Platelet Count 257 k/uL (150-450); RBC 4.86 m/uL (3.80-5.40); RDW 12.9 % (11.5-15.5); WBC 7.6 k/uL (3.8-10.6)
[2020-07-24 20:31] LABS: African American GFR (CKD) 70.4 (60.0-200.0); Anion Gap 9.3 mmol/L (4.00-12.00); Calcium 9.7 mg/dL (8.7-10.3); Carbon Dioxide 28.7 mmol/L (21.6-31.8); Non-African American GFR(CKD) 60.8 (60.0-200.0); Potassium 3.7 mmol/L (3.5-5.5)
== END | disposition home or self-care (01) ==
LOC: LABWHC1 12:35
PROVIDERS: ATTEND Urology
DX: N39.3 Stress incontinence (female) (male) (principal); Z88.1 Allergy status to other antibiotic agents
CPT/HCPCS: 36415; 80048; 85025; 87086; 93005

== ENCOUNTER 2021-03-12 14:12 | Emergency (ER) | payer OTHER ==
[2021-03-12 14:52] VITALS: BP 129/69; PULSE 57; RESP 18; TEMP 98.9
[2021-03-12] MEDS ORDERED: LIDOCAINE 1% INJ 10MG/ML (20 ML MDV) SQ STA (15:35)
[2021-03-12] MEDS ORDERED: DIPH,PERTUS(ACELL)TETVAC-LF 0.5 ML VIAL IM ONE (15:35)
--- NOTE | 2021-03-12 16:26 | ED ---
Wound/Laceration HPI - General Chief Complaint: Wound/Laceration Stated Complaint: finger injury Time Seen by Provider: 03/12/21 15:02 Source: patient, RN notes reviewed Mode of arrival: ambulatory Limitations: no limitations - History of Present Illness Initial Comments: Patient is a 60-year-old female that presents to the emergency department complaining of a left hand laceration. She notes she was cleaning dishes when she got her some with a knife. She notes that she washed it well apply pressure but noticed that a little vein was taking out. She notes that was not bleeding to bed when she came in. She denied any pain. She was unsure of her last tetanus shot. She denied any weakness numbness tingling decreased range of motion or strength in her left index finger - Related Data Home Medications Medication Instructions Recorded Confirmed Fish Oil (Unknown Dose) 1 tab PO DAILY 06/25/19 07/02/19 Ibuprofen [Motrin Ib] 800 mg PO Q8H PRN 06/25/19 07/02/19 Metoprolol/Hydrochlorothiazide 1 tab PO DAILY 06/25/19 07/02/19 [Lopressor Hct 50-25 Tablet] Multivit-Min/FA/Lycopen/Lutein 1 each PO DAILY 06/25/19 07/02/19 [Centrum Silver Tablet] Previous Rx's Medication Instructions Recorded Aspirin 325 mg PO BID #60 tab 07/03/19 HYDROcodone/APAP 5-325MG [[place] 1 - 2 tab PO Q6HR PRN #56 tab 07/03/19 5-325] Sennosides [Senokot] 1 tab PO BID #60 tablet 07/03/19 Allergies Allergy/AdvReac Type Severity Reaction Status Date / Time Iodinated Contrast Media Allergy Rash/Hives Verified 07/02/19 11:20 moxifloxacin [From Avelox] Allergy Rash/Hives Verified 07/02/19 11:20 Review of Systems ROS Statement: Those systems with pertinent positive or pertinent negative responses have been documented in the HPI. ROS Other: All systems not noted in ROS Statement are negative. Past Medical History Past Medical History: Hypertension Additional Past Medical History / Comment(s): Varicose Veins. Has kae Total Knees, implant broken in Rt Knee. History of Any Multi-Drug Resistant Organisms: None Reported Past Surgical History: Bariatric Surgery, Hysterectomy, Joint Replacement Additional Past Surgical History / Comment(s): abdominoplasty Past Anesthesia/Blood Transfusion Reactions: No Reported Reaction, Motion Sickness Past Psychological History: No Psychological Hx Reported Smoking Status: Never smoker Past Alcohol Use History: Occasional Past Drug Use History: None Reported - Past Family History Father Family Medical History: Cancer Additional Family Medical History / Comment(s): Esophageal CA Mother Family Medical History: Deep Vein Thrombosis (DVT) General Exam Limitations: no limitations General appearance: alert, in no apparent distress Head exam: Present: atraumatic, normocephalic, normal inspection Eye exam: Present: normal appearance, PERRL, EOMI. Absent: scleral icterus, conjunctival injection, periorbital swelling Neck exam: Present: normal inspection Respiratory exam: Present: normal lung sounds bilaterally. Absent: respiratory distress, wheezes, rales, rhonchi, stridor Cardiovascular Exam: Present: regular rate, normal rhythm, normal heart sounds. Absent: systolic murmur, diastolic murmur, rubs, gallop, clicks Left Hand Wrist exam: Present: laceration (2 lateral aspect at the proximal index finger measuring approximately one and a half centimeters) Neurological exam: Present: alert, oriented X3 Psychiatric exam: Present: normal affect, normal mood Skin exam: Present: warm, dry, intact, normal color. Absent: rash Course Vital Signs 03/12/21 14:49 Temperature 98.9 F Pulse Rate 57 L Respiratory 18 Rate Blood Pressure 129/69 O2 Sat by Pulse 96 Oximetry Procedures - Laceration Laceration #1 Consent Obtained: verbal consent Indication: laceration Site: hand (Lateral aspect of proximal index finger) Size (cm): 2 Description: linear Depth: simple, single layer Anesthetic Used: lidocaine 1% Anesthesia Technique: local infiltration Amount (mls): 3 Pre-repair: irrigated extensively Type of Sutures: nylon Size of Sutures: 5-0 Number of Sutures: 2 Technique: simple, interrupted Patient Tolerated Procedure: well, no complications Medical Decision Making - Medical Decision Making Patient is a 60-year-old female with a left hand laceration measuring approximately 1-1-1/2 cm. Lidocaine, tetanus vaccination ordered. Patient tolerated suturing well. Case discussed with Dr. Cassidy, patient discharge home in stable condition. Disposition Clinical Impression: Laceration Disposition: HOME SELF-CARE Condition: Stable Instructions (If sedation given, give patient instructions): Laceration (ED), Care For Your Stitches (ED) Additional Instructions: Please return to the Emergency Department if symptoms worsen or any other concerns. Follow-up with primary care as needed. Please return in 7-10 days to have stitches removed. Keep areas clean and as dry as possible. Take Motrin as needed for pain. Is patient prescribed a controlled substance at d/c from ED?: No Referrals: Angy Berger MD [Primary Care Provider] - 1-2 days Time of Disposition: 16:25
== END 2021-03-12 16:41 | disposition home or self-care (01) ==
LOC: EC 14:12
DX: S61.211A Laceration without foreign body of left index finger without damage to nail, initial encounter (principal); Z23 Encounter for immunization; I10 Essential (primary) hypertension; Z79.82 Long term (current) use of aspirin; W26.0XXA Contact with knife, initial encounter; Y93.G1 Activity, food preparation and clean up
CPT/HCPCS: 12001; 90471; 90715; 99282

== ENCOUNTER → 2021-06-08 | Outpatient (CLI) | payer OTHER ==
--- NOTE | 2021-06-10 09:42 | MM ---
Reason for exam: screening (asymptomatic). Last mammogram was performed 3 years and 3 months ago. History: Patient is postmenopausal. Took estrogen for 1 year. Physical Findings: A clinical breast exam by your physician is recommended on an annual basis and results should be correlated with mammographic findings. MG Screening Mammo w CAD Bilateral CC and MLO view(s) were taken. Prior study comparison: February 27, 2018, bilateral MG screening mammo w CAD. November 26, 2016, bilateral MG screening mammo w CAD. January 02, 2015, bilateral MG screening mammo w CAD. There are scattered fibroglandular densities. Previous mammotome biopsy in the left breast. No significant changes when compared with prior studies. ASSESSMENT: Benign, BI-RAD 2 RECOMMENDATION: Routine screening mammogram of both breasts in 1 year.
== END | disposition home or self-care (01) ==
LOC: RADMAMWWP 14:23
PROVIDERS: ATTEND Family Medicine
DX: Z12.31 Encounter for screening mammogram for malignant neoplasm of breast (principal)
CPT/HCPCS: 77067

== ENCOUNTER → 2021-06-16 | Outpatient (CLI) | payer OTHER ==
--- NOTE | 2021-06-16 08:54 | US ---
EXAMINATION TYPE: US soft tissue head/neck DATE OF EXAM: 06/16/2021 COMPARISON: Cervical spine CT 03/07/2017 CLINICAL HISTORY: 60-year-old female R22.1 SWELLING/MASS/LUMP. Right anterior neck palpable x years. TECHNIQUE: Right neck scanned by ultrasound. FINDINGS: [employer]er notes: At the patient's neck palpable large solid, heterogeneous and lobular mass is seen = 5.7 x 5.0 x 1.6cm. This solid mass is seen lateral to right thyroid gland. The mass is isoechoic and gently lobulated and shows no internal vascularity. IMPRESSION: Isoechoic and gently lobulated solid mass measuring up to 5.7 cm anterior right side of the neck just to the lateral aspect of the thyroid gland. 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 CT of the neck can be considered to assess for any change compared to the 03/07/[address] If any increa sing size or other symptoms, consider surgical evaluation.
== END | disposition home or self-care (01) ==
LOC: RADUSWWP 07:08
PROVIDERS: ATTEND Family Medicine
DX: R22.1 Localized swelling, mass and lump, neck (principal)
CPT/HCPCS: 76536

== ENCOUNTER 2021-11-21 09:04 | Emergency (ER) | payer OTHER ==
[2021-11-21 09:08] VITALS: RESP 16; TEMP 96.8
[2021-11-21] MEDS ORDERED: SODIUM CHLORIDE 0.9% 1,000 ML IV STA (09:58)
[2021-11-21] MEDS ORDERED: ONDANSETRON 4 MG/2 ML VIAL IVP STA (09:58)
--- NOTE | 2021-11-21 10:02 | ED ---
General Adult HPI - General Chief complaint: Nausea/Vomiting/Diarrhea Stated complaint: NVD Source: patient, RN notes reviewed Mode of arrival: ambulatory Limitations: no limitations - History of Present Illness Initial comments: 60-year-old female presents to the emergency room for a chief complaint of nausea vomiting diarrhea. Patient states 2 days ago around 4 AM she started having nausea vomiting. She has also had several episodes of diarrhea. The nausea and vomiting has improved and she has been keeping down fluids but she is still having diarrhea. She wants to make sure she is not dehydrated. She has not had any fevers. She has not had any abdominal pain.Patient has no other complaints at this time including shortness of breath, chest pain, abdominal pain, headache, or visual changes. - Related Data Home Medications Medication Instructions Recorded Confirmed Fish Oil (Unknown Dose) 1 tab PO DAILY 06/25/19 07/02/19 Ibuprofen [Motrin Ib] 800 mg PO Q8H PRN 06/25/19 07/02/19 Metoprolol/Hydrochlorothiazide 1 tab PO DAILY 06/25/19 07/02/19 [Lopressor Hct 50-25 Tablet] Multivit-Min/FA/Lycopen/Lutein 1 each PO DAILY 06/25/19 07/02/19 [Centrum Silver Tablet] Previous Rx's Medication Instructions Recorded Aspirin 325 mg PO BID #60 tab 07/03/19 HYDROcodone/APAP 5-325MG [Needles 1 - 2 tab PO Q6HR PRN #56 tab 07/03/19 5-325] Sennosides [Senokot] 1 tab PO BID #60 tablet 07/03/19 Ondansetron [Zofran ODT] 4 mg PO Q8HR PRN #15 tab 11/21/21 Allergies Allergy/AdvReac Type Severity Reaction Status Date / Time Iodinated Contrast Media Allergy Rash/Hives Verified 11/21/21 09:05 moxifloxacin [From Avelox] Allergy Rash/Hives Verified 11/21/21 09:05 Review of Systems ROS Statement: Those systems with pertinent positive or pertinent negative responses have been documented in the HPI. ROS Other: All systems not noted in ROS Statement are negative. Past Medical History Past Medical History: Hypertension Additional Past Medical History / Comment(s): Varicose Veins. Has kae Total Knees, implant broken in Rt Knee. History of Any Multi-Drug Resistant Organisms: None Reported Past Surgical History: Bariatric Surgery, Hysterectomy, Joint Replacement Additional Past Surgical History / Comment(s): abdominoplasty Past Anesthesia/Blood Transfusion Reactions: No Reported Reaction, Motion Sickness Past Psychological History: No Psychological Hx Reported Smoking Status: Never smoker Past Alcohol Use History: Occasional Past Drug Use History: None Reported - Past Family History Father Family Medical History: Cancer Additional Family Medical History / Comment(s): Esophageal CA Mother Family Medical History: Deep Vein Thrombosis (DVT) General Exam Limitations: no limitations General appearance: alert, in no apparent distress Head exam: Present: atraumatic Eye exam: Present: normal appearance, PERRL, EOMI. Absent: scleral icterus, conjunctival injection ENT exam: Present: normal exam, mucous membranes moist Neck exam: Present: normal inspection, full ROM. Absent: tenderness Respiratory exam: Present: normal lung sounds bilaterally. Absent: respiratory distress, wheezes Cardiovascular Exam: Present: regular rate, normal rhythm, normal heart sounds GI/Abdominal exam: Present: soft, normal bowel sounds. Absent: distended, tenderness Neurological exam: Present: alert Course Vital Signs 11/21/21 09:05 Temperature 96.8 F L Pulse Rate 76 Respiratory 16 Rate Blood Pressure 137/82 O2 Sat by Pulse 99 Oximetry Medical Decision Making - Medical Decision Making Vitals are stable. Patient is a well appearing. CBC is unremarkable. She does have some mild hemoconcentration, given IV fluids. CMP does show azotemia secondary to dehydration as well as some mild hypokalemia possibly secondary to dehydration, replaced orally. His ketones in the urine likely secondary to dehydration as well, again she was given fluids. COVID-19 is negative. At this point patient is stable for discharge home. We will send her home with some Zofran and Imodium. Discussed only to take Imodium if she is having active diarrhea. She will otherwise follow-up with her doctor. - Lab Data Result diagrams: 11/21/21 10:03 11/21/21 10:03 Lab Results 11/21/21 11/21/21 11/21/21 Range/Units 10:03 10:03 10:03 WBC 6.1 (3.8-10.6) k/uL RBC 4.99 (3.80-5.40) m/uL Hgb 16.4 H (11.4-16.0) gm/dL Hct 47.7 H (34.0-46.0) % MCV 95.5 (80.0-100.0) fL MCH 32.8 (25.0-35.0) pg MCHC 34.3 (31.0-37.0) g/dL RDW 13.3 (11.5-15.5) % Plt Count 242 (150-450) k/uL MPV 7.4 Neutrophils % 64 % Lymphocytes % 23 % Monocytes % 9 % Eosinophils % 1 % Basophils % 0 % Neutrophils # 3.9 (1.3-7.7) k/uL Lymphocytes # 1.4 (1.0-4.8) k/uL Monocytes # 0.5 (0-1.0) k/uL Eosinophils # 0.1 (0-0.7) k/uL Basophils # 0.0 (0-0.2) k/uL Sodium 139 (137-145) mmol/L Potassium 3.3 L (3.5-5.1) mmol/L Chloride 103 (98-107) mmol/L Carbon Dioxide 24 (22-30) mmol/L Anion Gap 12 mmol/L BUN 24 H (7-17) mg/dL Creatinine 0.92 (0.52-1.04) mg/dL Est GFR (CKD-EPI)AfAm 77 (>60 ml/min/1.73 sqM) Est GFR (CKD-EPI)NonAf 67 (>60 ml/min/1.73 sqM) Glucose 98 (74-99) mg/dL Calcium 9.0 (8.4-10.2) mg/dL Magnesium 1.7 (1.6-2.3) mg/dL Total Bilirubin 0.7 (0.2-1.3) mg/dL AST 30 (14-36) U/L ALT 13 (4-34) U/L Alkaline Phosphatase 70 (38-126) U/L Total Protein 7.7 (6.3-8.2) g/dL Albumin 4.2 (3.5-5.0) g/dL Amylase 36 (30-110) U/L Lipase 51 (23-300) U/L Urine Color Yellow Urine Appearance Clear (Clear) Urine pH 6.0 (5.0-8.0) Ur Specific [place] 1.027 (1.001-1.035) Urine Protein Trace H (Negative) Urine Glucose (UA) Negative (Negative) Urine Ketones Trace H (Negative) Urine Blood Negative (Negative) Urine Nitrite Negative (Negative) Urine Bilirubin Negative (Negative) Urine Urobilinogen 2.0 (<2.0) mg/dL Ur Leukocyte Esterase Small H (Negative) Urine RBC 2 (0-5) /hpf Urine WBC 3 (0-5) /hpf Ur Squamous Epith Cells 1 (0-4) /hpf Urine Mucus Occasional H (None) /hpf Coronavirus (PCR) (Not Detectd) 11/21/21 Range/Units 10:03 WBC (3.8-10.6) k/uL RBC (3.80-5.40) m/uL Hgb (11.4-16.0) gm/dL Hct (34.0-46.0) % MCV (80.0-100.0) fL MCH (25.0-35.0) pg MCHC (31.0-37.0) g/dL RDW (11.5-15.5) % Plt Count (150-450) k/uL MPV Neutrophils % % Lymphocytes % % Monocytes % % Eosinophils % % Basophils % % Neutrophils # (1.3-7.7) k/uL Lymphocytes # (1.0-4.8) k/uL Monocytes # (0-1.0) k/uL Eosinophils # (0-0.7) k/uL Basophils # (0-0.2) k/uL Sodium (137-145) mmol/L Potassium (3.5-5.1) mmol/L Chloride (98-107) mmol/L Carbon Dioxide (22-30) mmol/L Anion Gap mmol/L BUN (7-17) mg/dL Creatinine (0.52-1.04) mg/dL Est GFR (CKD-EPI)AfAm (>60 ml/min/1.73 sqM) Est GFR (CKD-EPI)NonAf (>60 ml/min/1.73 sqM) Glucose (74-99) mg/dL Calcium (8.4-10.2) mg/dL Magnesium (1.6-2.3) mg/dL Total Bilirubin (0.2-1.3) mg/dL AST (14-36) U/L ALT (4-34) U/L Alkaline Phosphatase (38-126) U/L Total Protein (6.3-8.2) g/dL Albumin (3.5-5.0) g/dL Amylase (30-110) U/L Lipase (23-300) U/L Urine Color Urine Appearance (Clear) Urine pH (5.0-8.0) Ur Specific [place] (1.001-1.035) Urine Protein (Negative) Urine Glucose (UA) (Negative) Urine Ketones (Negative) Urine Blood (Negative) Urine Nitrite (Negative) Urine Bilirubin (Negative) Urine Urobilinogen (<2.0) mg/dL Ur Leukocyte Esterase (Negative) Urine RBC (0-5) /hpf Urine WBC (0-5) /hpf Ur Squamous Epith Cells (0-4) /hpf Urine Mucus (None) /hpf Coronavirus (PCR) Not Detected (Not Detectd) Disposition Clinical Impression: Nausea vomiting and diarrhea Disposition: HOME SELF-CARE Condition: Good Instructions (If sedation given, give patient instructions): Acute Nausea and Vomiting (ED), Acute Diarrhea (ED) Additional Instructions: Take medications as directed. You can take Lomotil if you are still actively having diarrhea. Otherwise do not take this. Follow-up with your doctor on Tuesday. If you have any worsening symptoms return to the emergency room. Prescriptions: Ondansetron [Zofran ODT] 4 mg PO Q8HR PRN #15 tab PRN Reason: Nausea Is patient prescribed a controlled substance at d/c from ED?: No Referrals: Angy Berger MD [Primary Care Provider] - 1-2 days Time of Disposition: 10:55
[2021-11-21 10:16] LABS: Basophils % (A) 0 %; Eosinophils # (A) 0.1 k/uL (0-0.7); Eosinophils % (A) 1 %; HCT 47.7 % (34.0-46.0); HGB 16.4 gm/dL (11.4-16.0); Lymphocytes # (A) 1.4 k/uL (1.0-4.8); Lymphocytes % (A) 23 %; MCH 32.8 pg (25.0-35.0); MCHC 34.3 g/dL (31.0-37.0); MCV 95.5 fL (80.0-100.0); Mean Platelet Volume 7.4; Monocytes # (A) 0.5 k/uL (0-1.0); Monocytes % (A) 9 %; Neutrophils # (A) 3.9 k/uL (1.3-7.7); Neutrophils % (A) 64 %; Platelet Count 242 k/uL (150-450); RBC 4.99 m/uL (3.80-5.40); RDW 13.3 % (11.5-15.5); WBC 6.1 k/uL (3.8-10.6)
[2021-11-21 10:23] LABS: Albumin 4.2 g/dL (3.5-5.0); Magnesium 1.7 mg/dL (1.6-2.3); Potassium 3.3 mmol/L (3.5-5.1); Total Bilirubin 0.7 mg/dL (0.2-1.3); Total Protein 7.7 g/dL (6.3-8.2)
[2021-11-21 10:24] LABS: Appearance,Urine Clear (Clear); Bilirubin,Urine Negative (Negative); Blood,Urine Negative (Negative); Color,Urine Yellow; Glucose,Urine (UA) Negative (Negative); Ketones,Urine Trace (Negative); Leukocyte Esterase,Urine Small (Negative); Mucus,Urine Occasional /hpf; Nitrite,Urine Negative (Negative); Protein,Urine Trace (Negative); RBC,Urine 2 /hpf (0-5); Specific Gravity,Urine 1.027 (1.001-1.035); Squamous Epithelial Cell,Urine 1 /hpf (0-4); WBC,Urine 3 /hpf (0-5)
[2021-11-21] MEDS ORDERED: POTASSIUM CHLORIDE ER 20 MEQ TAB.ER PO STA (10:52)
[2021-11-21] MEDS ORDERED: ONDANSETRON 4 MG ODT STARTER PACK 2 TAB BTL PO STA (10:54)
[2021-11-21] MEDS ORDERED: DIPHENOX-ATROP STARTER PACK 8 TAB BTL PO STA (10:54)
[2021-11-21 11:42] VITALS: BP 141/98; PULSE 84
== END 2021-11-21 11:52 | disposition home or self-care (01) ==
LOC: EC 09:04
DX: R11.2 Nausea with vomiting, unspecified (principal); R19.7 Diarrhea, unspecified; I10 Essential (primary) hypertension; Z20.822 Contact with and (suspected) exposure to COVID-19; Z79.82 Long term (current) use of aspirin; Z98.84 Bariatric surgery status; Z90.710 Acquired absence of both cervix and uterus
CPT/HCPCS: 99284; 96374; 96361; 36415; 80053; 82150; 83690; 83735; 85025; 81001; 87635; J2405; S0119

== ENCOUNTER → 2021-12-10 | Outpatient (CLI) | payer OTHER ==
--- NOTE | 2021-12-10 10:48 | CT ---
EXAMINATION TYPE: CT soft tissue neck w con DATE OF EXAM: 12/10/2021 9:41 AM COMPARISON: CT dated 03/07/2017 and ultrasound dated 06/16/2021 HISTORY: Mass/swelling CT DLP: 520.00 mGycm Automated exposure control for dose reduction was used. CONTRAST: CT scan of the neck is performed following with IV Contrast, patient injected with 100 mL of Isovue 3 00. Axial images are obtained, coronal and sagittal reformatted images are reviewed. FINDINGS: A tiny metallic marker was placed at the area of interest. There is a fat density lesion along the an teromedial aspect of the right sternocleidomastoid muscle measuring 4 x 5.3 cm and extending for abou t 8 cm, likely representing a lipoma. It is slightly larger as compared to 2017 CT scan when it measu red 3.3 x 4.6 cm. No definite septation, calcification or solid component. The right sternocleidomastoid muscle is displaced laterally by the lipoma. The lipoma medially is ins eparable from the right lateral aspect of the thyroid cartilages. Superiorly, it is inseparable from the inferior aspect of the right submandibular salivary gland. Recommend surgical consultation. Enlarged lingual tonsils more on the right side, please correlate clinically. Underlying lesion can't be excluded. Further ENT consultation can be considered. Otherwise unremarkable nasopharynx, orophar ynx, hypopharynx, larynx, trachea and visualized portion of the esophagus. Unremarkable thyroid gland . Symmetrical unremarkable parotid and submandibular salivary glands. Aberrant right subclavian artery. Scattered arterial atherosclerotic calcifications. Patent major nec k vessels. No pathologically enlarged lymph nodes in the neck. Mild anterolisthesis of C5 over C6, li mariama degenerative with multilevel facet osteoarthropathy and degenerative changes at C5-6 and C6-7 le vels. IMPRESSION: Right neck lipoma, slightly larger as compared to 2017 CT scan without gross suspicious feature. Edinson mmend surgical consultation. Other findings as described above.
== END | disposition home or self-care (01) ==
LOC: RADCTMAIN 08:59
PROVIDERS: ATTEND Family Medicine
DX: D17.0 Benign lipomatous neoplasm of skin and subcutaneous tissue of head, face and neck (principal)
CPT/HCPCS: 70491; Q9967

== ENCOUNTER → 2023-05-04 | Outpatient (CLI) | payer OTHER ==
--- NOTE | 2023-05-12 09:45 | MR ---
EXAMINATION TYPE: MR hip LT wo con DATE OF EXAM: 05/04/2023 COMPARISON: None HISTORY: Left hip pain, bursitis. Standard multiplanar, multisequence MRI departmental protocol Multiplanar, multisequence images of the left hip were acquired without contrast. FINDINGS: There is a prominent edema adjacent to the iliotibial tract without evidence of isra tear. Edema and fluid within the trochanteric bursa compatible with trochanteric bursitis. Appears to be a pars shoulder tear of the lateral segment of the insertion of the gluteus medius tendon. There is a large intrasubstance tear at the origin of the hamstring tendon. No evidence of avulsion. Incidental note is made of edema along the greater trochanter of the right hip compatible with trocha nteric bursitis. Intrasubstance signal in the gluteus medius tendon on the right is suggestive of ten dinosis without evidence of isra tear. There is a mild concentric narrowing of the joint space compatible with arthritic changes. Favor oste oarthritis. Bony labrum grossly intact of the left hip. There is no erosive changes. A trace amount of fluid within the joint space. Chronic appearing ossified signal along the inferior margin of the lesser trochanter or small exostosis stable from CT scan of 03/07/2017. IMPRESSION: 1. Bilateral trochanteric bursitis greater on the left. 2. There is a partial tear of the lateral segment left gluteus medius tendon. 3. There is a large intrasubstance tear origin of the left hamstring tendons. No isra avulsion. 4. Prominent edema along the margin of the left iliotibial tract definite isra tear. 5. Intrasubstance signal within the insertion of the gluteus medius tendon of the right hip compatibl e with tendinosis.
== END | disposition home or self-care (01) ==
LOC: RADMRIMAIN 06:29
PROVIDERS: ATTEND Orthopaedic Surgery
DX: S76.312A Strain of muscle, fascia and tendon of the posterior muscle group at thigh level, left thigh, initial encounter (principal); M70.62 Trochanteric bursitis, left hip; M16.12 Unilateral primary osteoarthritis, left hip; E78.49 Other hyperlipidemia; I10 Essential (primary) hypertension; M67.853 Other specified disorders of tendon, right hip; R60.0 Localized edema

== ENCOUNTER → 2023-08-19 | Outpatient (CLI) | payer OTHER ==
--- NOTE | 2023-08-22 14:41 | MM ---
Reason for Exam: Screening (asymptomatic). Last mammogram was performed 2 year(s) and 3 month(s) ago. Patient History: Menarche at age 9. First Full-Term at age 15. Left ovary removed at age 24. Hysterectomy at age 30. Postmenopausal. Patient used Estrogen for 1 year. Risk Values: Michelle 5 year model risk: 1.3%. NCI Lifetime model risk: 5.2%. Prior Study Comparison: 11/26/2016 Bilateral Screening Mammogram, [facility]. 02/27/2018 Bilateral Screening Mammogram, [facility]. 06/08/2021 Bilateral Screening Mammogram, [facility]. Tissue Density: There are scattered fibroglandular densities. Findings: Analyzed By CAD. Heart appears stable. A couple of punctate benign calcifications are within the right breast. Chronic nodularity is within the left breast upper outer middle position. No significant interval change is evident. No suspicious groups of microcalcifications, spiculated or lobular masses, architectural distortion or other secondary signs of malignancy are mammographically apparent. Overall Assessment: Benign, BI-RAD 2 Management: Screening Mammogram of both breasts in 1 year. A negative mammogram report should not preclude additional follow up of suspicious palpable abnormalities. Patient should continue monthly self breast exam. A clinical breast exam by your physician is recommended on an annual basis and results should be correlated with mammographic findings. Electronically signed and approved by: Eduardo Segal D.O. Radiologis
== END | disposition home or self-care (01) ==
LOC: RADMAMWWP 14:27
PROVIDERS: ATTEND Family Medicine
DX: Z12.31 Encounter for screening mammogram for malignant neoplasm of breast (principal); Z78.0 Asymptomatic menopausal state
CPT/HCPCS: 77067

== ENCOUNTER → 2024-01-06 | Outpatient (CLI) | payer OTHER ==
[2024-01-06 18:30] LABS: Blood Urea Nitrogen 19.4 mg/dL (9.0-27.0)
== END | disposition home or self-care (01) ==
LOC: LABWHC1 14:14
PROVIDERS: ATTEND Surgery
DX: D17.0 Benign lipomatous neoplasm of skin and subcutaneous tissue of head, face and neck (principal)
CPT/HCPCS: 36415; 82565; 84520

== ENCOUNTER → 2024-06-18 | Outpatient (CLI) | payer MEDICARE, OTHER ==
[2024-06-18 15:37] LABS: HCT 44.8 % (37.2-46.3); HGB 15.2 g/dL (12.0-15.0); MCH 31.1 pg (27.0-32.0); MCHC 33.9 g/dL (32.0-37.0); MCV 91.8 FL (80.0-97.0); Mean Platelet Volume 9.5 FL (9.5-12.2); NRBC Per 100 WBC 0 X 10*3/uL (0.00-0.01); Platelet Count 241 X 10*3/uL (140-440); RBC 4.88 X 10*6/uL (4.10-5.20); RDW 12.3 % (11.5-14.5); WBC 4.35 X 10*3/uL (4.50-10.00)
[2024-06-18 16:04] LABS: ALT 7 U/L (8-44); AST 24 U/L (13-35); Albumin 4.3 g/dL (3.8-4.9); Albumin/Globulin Ratio 1.48 Ratio (1.60-3.17); Alkaline Phosphatase 78 U/L (41-126); Calcium 9.5 mg/dL (8.7-10.3); Carbon Dioxide 27.9 mmol/L (21.6-31.8); Chloride 100 mmol/L (96-109); Chol/HDL Ratio 4.38 Ratio; Globulin 2.9 g/dL (1.6-3.3); Glucose 91 mg/dL (70-110); LDL Cholesterol,Calculated 124.8 mg/dL (0.0-131.0); Potassium 3.7 mmol/L (3.5-5.5); Sodium 140 mmol/L (135-145); Total Bilirubin 0.4 mg/dL (0.3-1.2); Total Protein 7.2 g/dL (6.2-8.2)
== END | disposition home or self-care (01) ==
LOC: LABWHC1 11:21
PROVIDERS: ATTEND Specialist
DX: Z01.89 Encounter for other specified special examinations (principal)
CPT/HCPCS: 36415; 80053; 80061; 83036; 84443; 85027